=== PATIENT | male | born 1965 | race Caucasian/White ===

== ENCOUNTER → 2017-09-20 | Outpatient (CLI) | payer OTHER ==
[~2017-09-20] MED LIST: ALPR-1 PO; ALPR-429 PO; ALPR-698 PO; KET10 PO; PER PO; PRED-1 PO
[2017-09-20 08:38] LABS: LDL CHOLESTEROL 154 mg/dl
== END ==
LOC: LAB 07:56
PROVIDERS: ATTEND Internal Medicine
DX: F10.20 Alcohol dependence, uncomplicated (principal); R03.0 Elevated blood-pressure reading, without diagnosis of hypertension; F41.1 Generalized anxiety disorder; E78.2 Mixed hyperlipidemia
CPT/HCPCS: 36415; 82040; 82247; 82310; 82374; 82435; 82465; 82565; 82947; 83718; 84075; 84132; 84153; 84155; 84295; 84443; 84450; 84460; 84478; 84520; 84550

== ENCOUNTER → 2017-10-14 | Outpatient (REF) | payer OTHER ==
[~2017-10-14] MED LIST changes: +ATOR10TA65 PO
--- NOTE | 2017-10-14 13:35 | RADIOLOGY IMAGING REPORT ---
FACILITY: [facility] - [place] PATIENT NAME: Bob Finley : 1965 MR: [id number] V: [id number] EXAM DATE: ORDERING PHYSICIAN: RYAN GRANGER TECHNOLOGIST: Location: [facility] Patient: Bob Finley : 1965 Visit/Account:[id number] Date of Sevice: 10/14/2017 CHEST SINGLE AP HISTORY: Annual physical COMPARISON: 10/15/2016 FINDINGS: Cardiomediastinal contours: Normal Lungs and pleura: Normal Bones/soft tissues: Normal Other findings: None significant IMPRESSION: 1. Normal chest. No change. Report Dictated By: Marcio Dennison MD at 10/14/2017 1:31 PM Report E-Signed By: Marcio Dennison MD at 10/14/2017 1:31 PM WSN:[id number]
== END ==
LOC: RAD 10:49 → EDSTATUS 10:55 → RAD 10:55
PROVIDERS: ATTEND Internal Medicine
DX: Z02.89 Encounter for other administrative examinations (principal)
CPT/HCPCS: 71045

== ENCOUNTER → 2018-01-02 | Outpatient (CLI) | payer OTHER ==
[2018-01-02 09:09] LABS: LDL CHOLESTEROL 77 mg/dl
== END ==
LOC: LAB 08:15
PROVIDERS: ATTEND Internal Medicine
DX: E78.5 Hyperlipidemia, unspecified (principal); F41.1 Generalized anxiety disorder
CPT/HCPCS: 36415; 82040; 82247; 82310; 82374; 82435; 82465; 82565; 82947; 83718; 84075; 84132; 84155; 84295; 84450; 84460; 84478; 84520

== ENCOUNTER 2018-07-27 10:30 | Emergency (ER) | payer OTHER ==
[~2018-07-27 10:30] MED LIST changes: +BUSP7.5T7 PO
--- NOTE | 2018-07-27 10:48 | ER Report ---
History and Physical Time Seen By MD: 10:49 Hx. of Stated Complaint: patient states that he is having a bad panic attack; states that it has never been this bad before; has been going on for that last couple days and today it has gotten worse; patient is currently being treated for anxity HPI/ROS CHIEF COMPLAINT: Panic attack HISTORY OF PRESENT ILLNESS: Patient is a 52-year-old male who has a history of anxiety. He is been treated previously with Xanax but is currently on Wellbutrin. He states the symptoms usually well-controlled. He feels that the stress over the last week or so is causing him to have increasing racing thoughts. He feels like he is having constant chest pain for a week. He feels short of breath the symptoms occur while at rest. States that he is concerned because his dad is critically ill and resides in [place] from which he just returned. States that over the past 2-3 days since increasing racing thoughts he denies any suicidal or homicidal ideation. Has been using alcohol to dennis the symptoms. He states he has no prior history of hospital admissions or suicidal ideation. REVIEW OF SYSTEMS: Respiratory: No cough, no dyspnea. Cardiovascular: No chest pain, no palpitations. Gastrointestinal: No vomiting, no abdominal pain. Musculoskeletal: No back pain. Allergies: Coded Allergies: No Known Drug Allergies (Unverified , 12/05/16) Home Meds Active Scripts Lorazepam (ATIVAN) 0.5 Mg Tablet, 0.5 MG PO Q8H for Anxiety, #15 TAB 0 Refills Prov:ROSA SWEENEY MD 07/27/18 Atorvastatin Calcium (ATORVASTATIN CALCIUM) 10 Mg Tablet, 1 TAB PO QDAY, #90 TAB 1 Refill Prov:KAROLYN RAE MD 06/30/18 Buspirone Hcl (BUSPIRONE HCL) 7.5 Mg Tablet, 7.5 MG PO BID, #60 TAB 6 Refills Prov:KAROLYN RAE MD 05/27/18 Discontinued Scripts Alprazolam 0.25 Mg Tab (XANAX 0.25 MG TAB) 0.25 Mg Tablet, 0.5 TAB PO QDAY PRN for anxiety, #14 TAB Prov:KAROLYN RAE MD 04/09/18 Past Medical/Surgical History History of anxiety Hx Smoking: Yes (SMOKER FOR 30 YEARS. 1 PPD) Smoking Status: Current: Every Day Smoker Hx Substance Use Disorder: No Hx Alcohol Use: Yes Constitutional Vital Sign - Last 24 Hours 07/27/18 07/27/18 07/27/18 07/27/18 10:34 10:37 11:00 11:30 Temp 98.7 Pulse 92 72 80 Resp 19 B/P (MAP) 162/111 (128) 162/111 133/86 (102) 143/91 (108) Pulse Ox 100 98 96 O2 Delivery Room Air 07/27/18 12:00 Pulse 79 B/P (MAP) 142/88 (106) Pulse Ox 95 Physical Exam General Appearance: The patient is alert, has no immediate need for airway protection and no signs of toxicity. Eyes: Pupils equal and round no pallor or injection. ENT, Mouth: Mucous membranes are moist. Respiratory: There are no retractions, lungs are clear to auscultation. Cardiovascular: Regular rate and rhythm. Gastrointestinal: Abdomen is soft and non tender, no masses, bowel sounds normal. Neurological: Awake alert increased psychomotor agitation. Skin: Warm and dry, no rashes. Musculoskeletal: Neck is supple non tender. Extremities are nontender, nonswollen and have full range of motion. Medical Decision Making Data Points Result Diagram: 07/27/18 1120 07/27/18 1120 Laboratory Hematology Test 07/27/18 11:20 Red Blood Count 5.18 M/uL (4.00-5.60) Mean Corpuscular Volume 94.6 fL (80.0-96.0) Mean Corpuscular Hemoglobin 33.3 pg (26.0-33.0) Mean Corpuscular Hemoglobin Concent 35.2 g/dL (32.0-36.0) Red Cell Distribution Width 12.4 % (11.5-14.5) Mean Platelet Volume 7.6 fL (7.2-11.1) Neutrophils (%) (Auto) 62.6 % (39.4-72.5) Lymphocytes (%) (Auto) 24.8 % (17.6-49.6) Monocytes (%) (Auto) 8.5 % (4.1-12.4) Eosinophils (%) (Auto) 2.8 % (0.4-6.7) Basophils (%) (Auto) 1.3 % (0.3-1.4) Nucleated RBC Relative Count (auto) 0.1 /100WBC Neutrophils # (Auto) 4.7 K/uL (2.0-7.4) Lymphocytes # (Auto) 1.9 K/uL (1.3-3.6) Monocytes # (Auto) 0.6 K/uL (0.3-1.0) Eosinophils # (Auto) 0.2 K/uL (0.0-0.5) Basophils # (Auto) 0.1 K/uL (0.0-0.1) Nucleated RBC Absolute Count (auto) 0.01 K/uL Peripheral Blood Smear No Y/N Urine Color Yellow Urine Clarity Clear Urine pH 6.0 pH (4.8-9.5) Urine Specific Keeler 1.008 Urine Protein Negative mg/dL (NEGATIVE) Urine Glucose (UA) Negative mg/dL (NEGATIVE) Urine Ketones Trace mg/dL (NEGATIVE) Urine Blood Negative (NEGATIVE) Urine Nitrite Negative (NEGATIVE) Urine Bilirubin Negative (NEGATIVE) Urine Urobilinogen Negative mg/dL (0.2-1.9) Urine Leukocyte Esterase Negative (NEGATIVE) Urine RBC <1 /HPF (0-2/HPF) Urine WBC 1 /HPF (0-5/HPF) Urine Squamous Epithelial Cells None /LPF (</=FEW) Urine Bacteria Negative /HPF (NONE-FEW) Urine Mucus None /HPF (NONE-FEW) Sodium Level 139 mmol/L (137-145) Potassium Level 4.4 mmol/L (3.5-5.0) Chloride Level 104 mmol/L (98-107) Carbon Dioxide Level 22 mmol/L (22-30) Blood Urea Nitrogen 9 mg/dl (9-21) Creatinine 0.80 mg/dl (0.66-1.25) Glomerular Filtration Rate Calc > 60.0 Random Glucose 100 mg/dl (75-110) Calcium Level 9.6 mg/dl (8.4-10.2) Magnesium Level 1.9 mg/dl (1.7-2.2) Total Bilirubin 0.5 mg/dl (0.2-1.3) Aspartate Amino Transf (AST/SGOT) 65 U/L (0-35) Alanine Aminotransferase (ALT/SGPT) 69 U/L (0-56) Alkaline Phosphatase 97 U/L (0-126) Troponin I 0.023 ng/ml Total Protein 8.7 g/dl (6.3-8.2) Albumin 4.9 g/dl (3.5-5.0) Serum Alcohol 23 mg/dl Chemistry Test 07/27/18 11:20 White Blood Count 7.5 k/uL (4.5-11.0) Red Blood Count 5.18 M/uL (4.00-5.60) Hemoglobin 17.3 g/dL (14.0-18.0) Hematocrit 49.0 % (42.0-52.0) Mean Corpuscular Volume 94.6 fL (80.0-96.0) Mean Corpuscular Hemoglobin 33.3 pg (26.0-33.0) Mean Corpuscular Hemoglobin Concent 35.2 g/dL (32.0-36.0) Red Cell Distribution Width 12.4 % (11.5-14.5) Platelet Count 345 K/uL (150-450) Mean Platelet Volume 7.6 fL (7.2-11.1) Neutrophils (%) (Auto) 62.6 % (39.4-72.5) Lymphocytes (%) (Auto) 24.8 % (17.6-49.6) Monocytes (%) (Auto) 8.5 % (4.1-12.4) Eosinophils (%) (Auto) 2.8 % (0.4-6.7) Basophils (%) (Auto) 1.3 % (0.3-1.4) Nucleated RBC Relative Count (auto) 0.1 /100WBC Neutrophils # (Auto) 4.7 K/uL (2.0-7.4) Lymphocytes # (Auto) 1.9 K/uL (1.3-3.6) Monocytes # (Auto) 0.6 K/uL (0.3-1.0) Eosinophils # (Auto) 0.2 K/uL (0.0-0.5) Basophils # (Auto) 0.1 K/uL (0.0-0.1) Nucleated RBC Absolute Count (auto) 0.01 K/uL Peripheral Blood Smear No Y/N Urine Color Yellow Urine Clarity Clear Urine pH 6.0 pH (4.8-9.5) Urine Specific Keeler 1.008 Urine Protein Negative mg/dL (NEGATIVE) Urine Glucose (UA) Negative mg/dL (NEGATIVE) Urine Ketones Trace mg/dL (NEGATIVE) Urine Blood Negative (NEGATIVE) Urine Nitrite Negative (NEGATIVE) Urine Bilirubin Negative (NEGATIVE) Urine Urobilinogen Negative mg/dL (0.2-1.9) Urine Leukocyte Esterase Negative (NEGATIVE) Urine RBC <1 /HPF (0-2/HPF) Urine WBC 1 /HPF (0-5/HPF) Urine Squamous Epithelial Cells None /LPF (</=FEW) Urine Bacteria Negative /HPF (NONE-FEW) Urine Mucus None /HPF (NONE-FEW) Glomerular Filtration Rate Calc > 60.0 Calcium Level 9.6 mg/dl (8.4-10.2) Magnesium Level 1.9 mg/dl (1.7-2.2) Total Bilirubin 0.5 mg/dl (0.2-1.3) Aspartate Amino Transf (AST/SGOT) 65 U/L (0-35) Alanine Aminotransferase (ALT/SGPT) 69 U/L (0-56) Alkaline Phosphatase 97 U/L (0-126) Troponin I 0.023 ng/ml Total Protein 8.7 g/dl (6.3-8.2) Albumin 4.9 g/dl (3.5-5.0) Serum Alcohol 23 mg/dl Toxicology Test 07/27/18 11:20 Serum Alcohol 23 mg/dl Urinalysis Test 07/27/18 11:20 Urine Color Yellow Urine Clarity Clear Urine pH 6.0 pH (4.8-9.5) Urine Specific Keeler 1.008 Urine Protein Negative mg/dL (NEGATIVE) Urine Glucose (UA) Negative mg/dL (NEGATIVE) Urine Ketones Trace mg/dL (NEGATIVE) Urine Blood Negative (NEGATIVE) Urine Nitrite Negative (NEGATIVE) Urine Bilirubin Negative (NEGATIVE) Urine Urobilinogen Negative mg/dL (0.2-1.9) Urine Leukocyte Esterase Negative (NEGATIVE) Urine RBC <1 /HPF (0-2/HPF) Urine WBC 1 /HPF (0-5/HPF) Urine Squamous Epithelial Cells None /LPF (</=FEW) Urine Bacteria Negative /HPF (NONE-FEW) Urine Mucus None /HPF (NONE-FEW) EKG/Imaging EKG Interpretation EKG shows normal sinus rhythm with a ventricular rate of 67 bpm. Monitor Interpretation: Normal Sinus Rhythm Imaging X-ray unremarkable ED Course/Re-evaluation Clinical Indication for ER IV: IV Access ED Course 07/27/2018 12:11:55 pm cardiac workup is negative this time. Plan will be to prescribe a short course of Ativan were used as a last resort for panic attack. Patient will follow-up with his primary care provider patient is also seeking counseling for potential alcohol abuse. Decision to Disposition Date: Jul 27, 2018 Decision to Disposition Time: 12:18 Depart Departure Latest Vital Signs Vital Signs Date Time Temp Pulse Resp B/P (MAP) Pulse Ox O2 Delivery O2 Flow Rate FiO2 07/27/18 12:00 79 142/88 (106) 95 07/27/18 10:37 98.7 19 Room Air Impression: Primary Impression: Panic attack as reaction to stress Condition: Improved Disposition: HOME OR SELF-CARE Referrals: KAROLYN RAE MD (PCP) Call to schedule follow-up appointment to discuss your increasing frequency of panic attacks New Scripts Lorazepam (ATIVAN) 0.5 Mg Tablet 0.5 MG PO Q8H for Anxiety, #15 TAB 0 Refills Prov: ROSA SWEENEY MD 07/27/18 Patient Instructions: Panic Attack (ED) ROSA SWEENEY MD Jul 27, 2018 10:48
[2018-07-27] MEDS ORDERED: LORazepam 1 MG TAB PO ONE (10:50)
--- NOTE | 2018-07-27 11:39 | EKG ---
FACILITY: [facility] - [place] PATIENT NAME: ROSA PEREZ : [id number] MR: [id number] V: [id number] EXAM DATE: ORDERING PHYSICIAN: ROSA SWEENEY TECHNOLOGIST: TODD Test Reason : CHEST TIGHTNESS Blood Pressure : / mmHG Vent. Rate : 067 BPM Atrial Rate : 067 BPM P-R Int : 144 ms QRS Dur : 110 ms QT Int : 376 ms P-R-T Axes : 058 077 072 degrees QTc Int : 397 ms Sinus rhythm Diffuse ST elevation suspect early repolarization, but cannot exclude other causes Nonspecific interventricular conduction delay No previous ECGs available Confirmed by LOAN CARTER ([id number]) on 07/28/2018 6:15:35 AM Referred By: ZAHRA Confirmed By:LOAN CARTER
[2018-07-27 11:42] LABS: PLATELET COUNT, AUTOMATED 345 K/uL (150-450)
[2018-07-27 12:00] VITALS: BP 142/88
[2018-07-27] MEDS ORDERED: LORA-1455 PO (12:12)
--- NOTE | 2018-07-27 12:26 | RADIOLOGY IMAGING REPORT ---
FACILITY: [facility] PATIENT NAME: Bob Finley : 1965 MR: [id number] V: [id number] EXAM DATE: ORDERING PHYSICIAN: BOB SWEENEY TECHNOLOGIST: [place] [facility] [place] Bob Fin[place] : 1965 Visit/Account:[id number] Date of Sevice: 07/27/2018 Chest 2 views: HISTORY: Chest pain, panic attack, smoker COMPARISON: 10/14/2017 FINDINGS: Frontal and lateral chest: Cardiomediastinal silhouette is within normal limits. There is n o infiltrate or pleural effusion. No pneumothorax. Pulmonary vasculature is normal. Osseous structures are within normal limits. IMPRESSION: No evidence of acute cardiopulmonary abnormality. Report Dictated By: Elva Granados MD at 07/27/2018 12:21 PM Report E-Signed By: Elva Granados MD at 07/27/2018 12:23 PM WSN:[id number]
== END 2018-07-27 12:27 | disposition home or self-care (01) ==
LOC: ER 11:09
DX: F41.0 Panic disorder [episodic paroxysmal anxiety] (principal)
CPT/HCPCS: 71046; 80320; 81001; 82040; 82247; 82310; 82374; 82435; 82565; 82947; 83735; 84075; 84132; 84155; 84295; 84450; 84460; 84484; 84520; 85025; 93005; 99284